=== PATIENT | female | born 1935 | race Caucasian/White ===

== ENCOUNTER 2017-02-02 13:44 | Emergency (ER) | payer OTHER ==
[~2017-02-02] VITALS: Ht 154.9 cm; Wt 82.6 kg
[~2017-02-02 13:44] MED LIST: Advair 250/50 Diskus IH; COUMADIN,JANTOVE1 MG PO; FEOSOL325 MG PO; Feosol PO; Hydrodiuril,Oretic,E PO; MAXZIDE 75/51 TABLET PO; Osteo-Biflex,Flex-A- PO; Percocet 5/325,Endoc PO; Singulair PO; THERAGRAN1 TABLET PO; Zocor PO
[2017-02-02 16:48] LABS: EOSINOPHIL (%) 0.6 % (0-5); EOSINOPHIL COUNT 0.1 K/uL (0-0.3); IMMATURE GRANULOCYTE (%) 0.2 % (0.0-0.7); INSTRUMENT ABS NEUTROPHIL CT 5.4 K/uL; LYMPHOCYTE COUNT 2.1 K/uL (1.0-2.8); MCH 30.1 PG (29.0-34.0); MCHC 33.2 G/DL (30.0-36.0); MCV 90.7 FL (83-99); MONOCYTE (%) 6.9 % (3-12); MONOCYTE COUNT 0.6 K/uL (0-0.8); NEUTROPHIL (%) 65.9 % (45-76); NEUTROPHIL COUNT 5.4 K/uL (1.8-6.4); PLATELET COUNT 246 K/uL (156-360); RBC DIS.WIDTH-CV 12.7 % (11.8-14.6); RBC DIS.WIDTH-SD 42.2 % (39-53); RED BLOOD COUNT 4.85 M/uL (3.80-5.20); WHITE BLOOD COUNT 8.2 K/uL (4.1-10.2)
[2017-02-02 16:59] LABS: CHLORIDE 101 mEq/L (99-109); POTASSIUM 3.6 mEq/L (3.7-5.4); SODIUM 138 mEq/L (136-147)
[2017-02-02 17:01] LABS: GLUCOSE 96 mg/dL (70-99)
[2017-02-02 17:02] LABS: ANION GAP 11 MEQ/L (2-14)
[2017-02-02 17:03] LABS: TOTAL BILIRUBIN 0.9 mg/dL (0.0-1.0)
[2017-02-02 17:04] LABS: ALKALINE PHOSPHATASE 93 IU/L (3-129)
[2017-02-02 17:05] LABS: GFR ESTIMATE (CALCULATED) 57 mL/min/
[2017-02-02 17:06] LABS: UREA NITROGEN (BUN) 12 mg/dL (9-23)
[2017-02-02 17:08] LABS: LIPASE 22 U/L (1.0-51.0)
[2017-02-02 18:17] LABS: ADD MIUA? YES; BILIRUBIN NEGATIVE; BLOOD SMALL; COLOR STRAW ((YELLOW)); GLUCOSE (STRIP) NEGATIVE; KETONES NEGATIVE; LEUKOCYTES NEGATIVE; NITRITE NEGATIVE; PROTEIN (STRIP) NEGATIVE; SPECIFIC GRAVITY 1.018 (1.000-1.030); UROBILINOGEN 0.2 MG/DL (0.2-1.0)
[2017-02-02 18:20] LABS: BACTERIA RARE /HPF; EPITHELIAL CELLS RARE /HPF; MUCUS NONE SEEN /LPF; RED BLOOD CELLS 0-5 /HPF (0-5); UCUL ADDED? NO; WHITE BLOOD CELLS 0-5 /HPF (0-5)
[2017-02-02] MEDS ORDERED: MIRALAX255 GM PO (18:58)
[2017-02-02 19:10] VITALS: BP 1565/75
== END 2017-02-02 19:11 | disposition home or self-care (01) ==
LOC: EME 13:44
PROVIDERS: Emergency Medicine
DX: K59.00 Constipation, unspecified (principal); J45.909 Unspecified asthma, uncomplicated; I10 Essential (primary) hypertension
CPT/HCPCS: 74020; 74177; 80053; 81003; 83690; 85025; 99281; 99284; J7030